=== PATIENT | female | born 1990 | race Caucasian/White ===

== ENCOUNTER 2024-07-12 08:10 | Emergency (ER) | payer OTHER, SELFPAY ==
[2024-07-12 08:11] VITALS: BP 119/76
[2024-07-12 08:43] LABS: COVID-19 Antigen Negative (Negative)
--- NOTE | 2024-07-12 09:28 | ED.GENMED ---
History of Present Illness
General
Chief Complaint: Cold/Flu/URI Symptoms
Source: patient
Exam Limitations: none
Time Seen by Provider: 07/12/24 08:29
Nursing documentation reviewed up to this point in time: agreed with
History of Present Illness
History of Present Illness:
As documented patient is a 34-year-old female with thyroid cancer (status postsurgery 1 year ago )who presents to the ER for evaluation. She reports she woke up around 3:30 in the morning and could not breathe. She also noted she had a fever of
101.7. She started with intermittent fevers and chills since Friday. She does report she had hand tingling when this occurred. She reports when she got here to the ER she started to feel better. She is currently asymptomatic.
Patient does have a history of asthma however that is very well-controlled. She is a non-smoker. She is not on control.
Past History
Past History
ED Past Medical History: Asthma and Other (GESTATIONAL DIABETES)
ED Past Surgical History: None
Social History
Tobacco: Non-smoker
Alcohol: None
Drug: None
Personal: Single
Living: with family
Employment: Employed
Family History
Family History: Other (Noncontributory)
Review of Systems
Review of Systems
Allergies reviewed?: Yes
All Other Systems: ROS reviewed and negative except as documented in HPI and ROS
Constitutional: Reports fever and chills
EENT: Reports no symptoms
Respiratory: Reports cough and trouble breathing
Cardiac: Reports no symptoms
ABD/GI: Reports no symptoms
: Reports no symptoms
Musculoskeletal: Reports no symptoms
Skin: Reports no symptoms
Neurological: Reports no symptoms
Psychiatric: Reports no symptoms
Phy Exam
General Physical Exam
General Presentation: no apparent distress
General age: appears stated age
General Skin: warm and dry
General Habitus: normal
General Mental: alert
General Hydration: appears well hydrated
Cardiovascular Exam
Cardiovascular Exam: regular rate/rhythm, no murmur and normal peripheral pulses
Pulmonary Exam
Pulmonary Exam: lungs clear and no respiratory distress
Neurological Exam
Neurological Exam: alert and oriented x3
Musculoskeletal Exam
Musculoskeletal Exam: full ROM
Skin Exam
Skin Exam: normal color and warm/dry
Psychiatric Exam
Psychiatric Exam: normal mood/affect
Course
Orders/Labs/Results
Orders:
Orders
07/12/24 08:18
COVID-19 Antigen Urgent
Source: Nasal Swab
Influenza A+B Rapid Molecular Urgent
KA[facility] Source: Nasal Swab
Specimen Description:
07/12/24 09:27
IV Insert/Care/Rem.- Treatment PRN
Test Result ONCE
Chest [CR Chest - 2 Views ] Urgent
Comment:
Reason For Exam: sob
07/12/24 09:52
Complete Blood Count/With Diff Urgent
Comprehensive Metabolic Panel Urgent
DDimer [D-Dimer] Urgent
HCG, Serum Qualitative Screen Urgent
07/12/24 10:52
Electrocardiogram (*1) Stat
Reason for Study: Other
Other Reason for Exam: chest pain
EKG- Treatment ONCE
Abnormal Lab Results
07/12/24
09:52
WBC 2.7 L 10^3/uL
(4.8-10.8)
Plt Count 126 L 10^3/uL
(130-400)
Absolute Lymphs (auto) 0.3 L 10^3/uL
(1.2-3.4)
Neutrophils % 77.0 H %
(42.2-75.2)
Lymphocytes % 9.8 L %
(20.5-51.1)
Monocytes % 10.9 H %
(1.7-9.3)
Chloride 110 H mmol/L
(98-107)
Glucose 107 H mg/dl
(70-99)
07/12/24 09:52
07/12/24 09:52
Vital Signs
Initial and Last Documented VS:
Initial Vital Signs
Temp Pulse Resp BP Pulse Ox
98.2 F 86 18 119/76 98
07/12/24 08:11 07/12/24 08:11 07/12/24 08:11 07/12/24 08:11 07/12/24 08:11
Last Documented Vital Signs
Temp Pulse Resp BP Pulse Ox
98.7 F 73 18 117/77 97
07/12/24 11:12 07/12/24 11:12 07/12/24 11:12 07/12/24 11:12 07/12/24 11:12
Intake Coordinator consulted with Physician
Intake Coordinator consulted with physician?: Yes
Name of Physician Consulted: Eduardo
MDM/Problems Addressed
MDM/Problems Addressed:
34 yr old female presented with recent fever/chills for past several days however presented because she developed acute shortness of breath in the middle of the night. This is what prompted patient to come to the ER. However on my exam she
reports she is feeling much better and asymptomatic. She is in no acute distress nontachycardic nontachypneic lungs are clear. Patient does have a history of thyroid cancer D-dimer was done and negative. She does not smoke and no other risk
factors for PE. X-ray viewed by myself negative for acute pneumonia. Negative flu negative COVID. Patient's white count and platelets are low likely viral syndrome discussed with patient importance of close outpatient follow family doctor for
repeat reevaluation and discussed the importance of repeat blood work in the next week.
Chronic conditions affecting care:
History of thyroid cancer
*Radiology
Radiology exam reviewed: radiology read reviewed
*Pulse Oximetry
Patient hypoxic: no
*EKG
Interpreted by ED Provider?: Yes
Heart Rate: 75
Rate: normal
Rhythm: sinus
Ischemia: no ischemia
*Critical Care Note
Total Time (30-74mins, 75-104mins- exclusive of procedures): Not Applicable
ED Attending Note
-
Portions of this chart may have been created with voice recognition software.� Occasional wrong word or��sound alike� substitutions may have occurred due to the inherent limitations of voice recognition software.
Discharge Plan
Departure
Patient Disposition: Home (Routine Discharge)
Date of Disposition: 07/12/24
Time of Disposition: 10:46
Patient with high blood pressure during this ER visit?: No
Condition: Fair
Covid-19: Not Applicable
Discharge Problem:
Acute viral syndrome
Instructions: Viral Syndrome (DC)
Prescriptions:
No Action
uyqbaiiy-tzez-PF-calcium-mins [Women's Daily Caplet] 1 EACH tablet
1 ea PO DAILY
amoxicillin-pot clavulanate 875 MG/125 MG tablet
1 tab PO Q12 Qty: 20 0RF
cephalexin 500 mg capsule
500 mg PO BID Qty: 7 0RF
Referrals:
Arcadio Arroyo, DO [Family Provider] -
Stand Alone Forms: Return to Work
Activity Restrictions/Additional Instructions:
As discussed your workup was unremarkable here in the ER your chest x-ray was negative for pneumonia. Your white count is mildly low and your platelets are mildly low this may likely be related to a viral syndrome.
Be sure to get plenty of rest and closely follow-up with your family doctor for reevaluation of your symptoms. Please also get repeat labs to reevaluate your white count and platelets.
Return if any worsening of symptoms.
Interventions
Interventions:
*Risk Screen - Suicide Last Done: 07/12/24 08:16
*General Assessment Last Done: 07/12/24 08:16
*Neglect/Abuse Screening Last Done: 07/12/24 09:49
*ED- Fall Risk Assessment Last Done: 07/12/24 09:49
*ED COVID-19 Vaccine History Last Done: 07/12/24 09:49
*Nursing Disposition Last Done: 07/12/24 11:12
ED- Pulmonary Assessment Last Done: 07/12/24 09:49
Discharge Date and Time
Discharge Date/Time: 07/12/24 11:15
Print Language: BANGLADESHI
[2024-07-12 09:41] VITALS: BP 114/72
[2024-07-12 09:48] VITALS: BMI 30.5
[2024-07-12 09:51] VITALS: BP 114/72
[2024-07-12 10:00] VITALS: BP 109/75
[2024-07-12 10:01] LABS: % Basophils 1.5 % (0-2); % Eosinophils 0.4 % (0-6); % Immature Granulocytes 0.4 % (0-0.5); % Lymphocytes 9.8 % (20.5-51.1); % Monocytes 10.9 % (1.7-9.3); Absolute Lymphocytes 0.3 10^3/uL (1.2-3.4); Absolute Monocytes 0.3 10^3/uL (0.1-0.6); Hematocrit 43.8 % (37.0-47.0); Hemoglobin 15.2 g/dL (12.0-16.0); Mean Corp Hgb Conc. 34.7 g/dL (33.0-37.0); Mean Corpuscular Volume 86.4 fL (81.0-99.0); Mean Platelet Volume 9.9 fL (7.4-10.4); Nucleated Red Blood Cells % 0 %; Platelet Count 126 10^3/uL (130-400); Red Blood Cell Count 5.07 10^6/uL (4.20-5.40); Red Cell Dist. Width 12.4 % (11.5-14.5); White Blood Cell Count 2.7 10^3/uL (4.8-10.8)
[2024-07-12 10:14] LABS: HCG, Serum Qualitative Screen Negative
[2024-07-12 10:17] LABS: D-Dimer 0.35 ug/mlFEU (0.00-0.50)
[2024-07-12 10:21] LABS: ALT (SGPT) 18 U/L (0-35); AST (SGOT) 24 U/L (14-36); Albumin 4.1 g/dl (3.5-5.0); Alkaline Phosphatase 62 U/L (38-126); Blood Urea Nitrogen 12 mg/dl (7-17); Calcium 8.8 mg/dl (8.4-10.2); Carbon Dioxide 24 mmol/L (22-30); Chloride 110 mmol/L (98-107); Estimated Creatinine Clearance 110 ml/min; Glucose 107 mg/dl (70-99); Potassium 3.7 mmol/L (3.5-5.1); Sodium 141 mmol/L (135-145); Total Bilirubin 0.4 mg/dl (0.2-1.3); Total Protein 6.5 g/dl (6.3-8.2); eGFR > 60.00
[2024-07-12 11:12] VITALS: BP 117/77
--- NOTE | 2024-07-12 11:12 | EDRN ---
Reviewed discharge instructions with patient. Verbalized understanding.
== END 2024-07-12 11:15 | disposition home or self-care (01) ==
LOC: EMR 08:10
PROVIDERS: Nurse Practitioner; EMERGENCY PHYSICIAN Emergency Medicine; FAMILY PHYSICIAN Family Medicine
DX: B34.9 Viral infection, unspecified (principal); J45.909 Unspecified asthma, uncomplicated; Z85.850 Personal history of malignant neoplasm of thyroid
CPT/HCPCS: 99283; 71046; 80053; 84703; 85025; 85379; 87502; 87811; 93005

== ENCOUNTER 2024-10-20 05:54 | Day surgery (SDC) | payer OTHER, SELFPAY ==
[2024-10-12 09:00] LABS: Hematocrit 44.4 % (37.0-47.0); Hemoglobin 14.7 g/dL (12.0-16.0); Mean Corp Hgb Conc. 33.1 g/dL (33.0-37.0); Mean Corpuscular Volume 88.8 fL (81.0-99.0); Platelet Count 235 10^3/uL (130-400); Red Cell Dist. Width 11.8 % (11.5-14.5)
[2024-10-12 09:15] LABS: HCG, Serum Qualitative Screen Negative
[2024-10-20] VITALS (9 sets, daily range): BP systolic 102–124; BP diastolic 58–87; BMI 30.1
[2024-10-20] MEDS: NORMOSOL-R/PLASMALYTE-A 1000 IV (06:29)
[2024-10-20] MEDS: ZOFRAN 4 MG IV (10:01)
--- NOTE | 2024-10-20 12:14 | OR.RPT ---
Operative Report
Operative Report
Date of procedure: 10/20/2024
Preop diagnosis: Desires permanent sterilization
Postop diagnosis: same
Procedure: Laparoscopic bilateral salpingectomy, IUD removal
Surgeon: Nolvia Martin DO
Movie Theater Manager: Kaye PEGUERO
Anesthesia: General, Dr. Alvarado
EBL: 5cc
Findings:
- Bimanual exam with normal sized anteverted uterus, no adnexal masses
- Normal appearing cervix without lesions or masses
- IUD strings not visualized, easily teased out and Paragard IUD removed without difficulty, intact
- Normal appearing uterus, bilateral fallopian tubes and ovaries
Complications: none
Pathology: right and left fallopian tubes
Indication: Patient is a 34yo who presents for schedule laparoscopic bilateral salpingectomy. She currently has a Paragard IUD that expires this month and she would like it removed. She has completed her family status and desires permanent
sterilization. She was counseled on other options for contraception, including LARCs and declined. 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 She was counseled on the risks, benefits
and alternatives and consents were previously signed in the office. She is aware it is a permanent procedure and she can no longer conceive children naturally.
Procedure: Patient was taken to the operating room and placed under general anesthesia. She was placed in the dorsal lithotomy position with Gilbert type stirrups. She was prepped and draped in the normal sterile fashion. The vagina was prepped with
Betadine and the abdomen with ChloraPrep. The bladder was drained with a straight catheter yielding 400cc of clear urine. Renner retractors were placed in the posterior and anterior aspects of the vagina revealing good visualization of the cervix. The
cervix was grasped with a single tooth tenaculum. IUD strings were not visualized. They were easily teased out of the cervical canal with polyp forceps. The IUD strings were then grasped and removed intact without difficulty. The uterus was sounded
to 8.5cm. The cervix was sequentially dilated. A Humi manipulator was introduced to the fundus. The tenaculum was removed from the cervix.
Gloves were changed and attention was turned to the abdomen. A 5mm incision was made inferior to the umbilicus. Veress needle was introduced and intraabdominal pressure was <5mmHg. The abdomen was insufflated to 15mmHg. A 5mm Optiview trocar was
inserted under direct visualization. Abdominal survey revealed the aforementioned findings. Two 5mm accessory Optiview trocar were placed under direct visualization in the right and left lower quadrants. The right fallopian tube was followed out to
the fimbriated end. The right fallopian tube was removed in a stepwise fashion along the mesosalpinx with the LigaSure device. The right fallopian tube was removed through the accessory trocar and sent to pathology. The left fallopian tube was then
followed out to the fimbriated end and removed in a similar fashion. The left fallopian tube was not able to fit through the accessory trocar. A 5mm EndoCatch bag was introduced. The left fallopian tube was removed in the EndoCatch bag and sent to
pathology. The salpingectomy sites were examined and were hemostatic. The trocars were removed under direct visualization. The abdomen was desufflated. Port sites were closed using single interrupted stitches with 4-0 Monocryl. Incisions were
covered with skin glue. The uterine manipulator was removed. Counts were correct. The patient was awakened from anesthesia and transferred to PACU in stable condition.
== END 2024-10-20 10:43 | disposition home or self-care (01) ==
LOC: SDS 05:54
PROVIDERS: ATTENDING PHYSICIAN Student in an Organized Health Care Education/Training Program; FAMILY PHYSICIAN Family Medicine
DX: Z30.2 Encounter for sterilization (principal); Z97.5 Presence of (intrauterine) contraceptive device
CPT/HCPCS: 58661; 36415; 84703; 85027; 86850; 86900; 86901; 88302